=== PATIENT | female | born 1995 | race Caucasian/White ===

== ENCOUNTER 2022-10-14 08:33 | Outpatient (OUT) | payer BC, OTHER, SELFPAY ==
[2022-10-15 01:06] LABS: Progesterone 9.3 ng/mL (.)
== END 2022-10-14 08:34 ==
PROVIDERS: Visit Provider Obstetrics & Gynecology
DX: N97.0 Female infertility associated with anovulation (principal)
CPT/HCPCS: 36415; 84144

== ENCOUNTER 2022-11-15 12:22 | Outpatient (OUT) | payer SELFPAY ==
[2022-11-16 07:13] LABS: Progesterone 26.4 ng/mL (.)
== END 2022-11-15 12:23 | disposition home or self-care (01) ==
PROVIDERS: Visit Provider Obstetrics & Gynecology
DX: E34.9 Endocrine disorder, unspecified (principal)
CPT/HCPCS: 36415; 84144

== ENCOUNTER 2022-12-09 09:22 | Outpatient (OUT) | payer SELFPAY ==
--- NOTE | 2022-12-09 09:25 | US_ITS ---
[address] [address] Patient Name: ABIOLA ANDERSON MRN: [id number] date: 1995 Sex: F Assigned Patient Location: US Current Patient Location: US Accession/Order Number: [id number] Exam Date: 12/09/2022 09:26 Report Date: 12/09/2022 10:22 At the request of: LAZARUS YI Procedure: US pelvis w/ transvaginal EXAMINATION: US pelvis w/ transvaginal HISTORY: CYST OF RT OVARY COMPARISON: 09/16/2022 FINDINGS: Uterus is normal in size, contour and myometrial echotexture measuring 7.2 x 3.5 x 4.3 cm. Anteverted, anteflexed The endometrium measures 9 mm, normal. The right ovary measures 4.0 x 3.2 x 5.1 cm. Normal color and Doppler flow. Area of anechoic echogenicity measuring 1.9 x 1.7 x 2.2 cm, simple cysts. The left ovary measures 3.9 x 2.2 x 4.2 cm. Normal subcentimeter follicles. Normal color and Doppler flow No free fluid US/US pelvis w/ transvaginal IMPRESSION: 2.2 cm right ovarian simple cyst Previously identified right ovarian cystic lesion is not observed on the current exam Electronically authenticated by: LISA VELASCO Date: 12/09/2022 10:22
== END 2022-12-09 09:23 | disposition home or self-care (01) ==
LOC: US 09:22
PROVIDERS: Visit Provider Obstetrics & Gynecology
DX: N83.201 Unspecified ovarian cyst, right side (principal); E34.9 Endocrine disorder, unspecified
CPT/HCPCS: 76830; 76856

== ENCOUNTER 2022-12-16 06:28 | Outpatient (OUT) | payer SELFPAY ==
[2022-12-17 04:08] LABS: Progesterone 12.3 ng/mL (.)
== END 2022-12-16 06:29 | disposition home or self-care (01) ==
LOC: LAB 06:29
PROVIDERS: Visit Provider Obstetrics & Gynecology
DX: E34.9 Endocrine disorder, unspecified (principal)
CPT/HCPCS: 36415; 84144

== ENCOUNTER 2022-12-31 07:49 | Day surgery (SDC) | payer SELFPAY ==
--- NOTE | 2022-12-31 08:00 | FL_ITS ---
The [address] [address] Patient Name: ABIOLA ANDERSON MRN: [id number] date: 1995 Sex: F Assigned Patient Location: [place] Current Patient Location: Accession/Order Number: [id number] Exam Date: 12/31/2022 08:55 Report Date: 12/31/2022 10:40 At the request of: LAZARUS YI Procedure: FL hysterosalpingography EXAMINATION: FL hysterosalpingography HISTORY: Anovulation N97.0 , chronic infertility COMPARISON: No relevant comparison available. TECHNIQUE: Informed consent was obtained. A sterile vaginal speculum was introduced and, following cleansing of the cervix, a balloon-tipped catheter was inserted into the endometrial cavity. The procedure was then completed in the usual manner with water-soluble contrast. Standard level fluoroscopic mode of operation utilized. 1.4 minutes; 5 images FINDINGS: FALLOPIAN TUBES: No dilated fallopian tubes, most pronounced distally which retain injected contrast (no spillage into the peritoneal cavity). ENDOMETRIAL CAVITY: No scarring, filling defects, or dilatation. OTHER: Small speculum was needed for vaginal entry. Very difficult passage of catheter through the cervix (I could not get a small dilator to pass through the internal os, but was finally able to get the catheter to pass through the internal os. FL/FL hysterosalpingography IMPRESSION: 1. Retained contrast within the dilated fallopian tubes and no appreciable spillage into the peritoneal cavity consistent with obstructed distal ends of the fallopian tubes. MRI of the pelvis may be beneficial to evaluate for hydrosalpinx and possible scarring or endometriosis as cause of inadequate opening of the distal end of fallopian tubes. 2. Difficult passage of catheter through the cervix into the endometrial cavity. This may inhibit sperm migration. Electronically authenticated by: KAMALJIT MUÑOZ Date: 12/31/2022 10:40
[2022-12-31 09:03] LABS: HCG Quantitative <1 mIU/mL
[2022-12-31 10:21] VITALS: BMI 20.4
--- NOTE | 2022-12-31 10:25 | PC.NURSE ---
0935 Pt c/o nausea during middle of procedure and did have emesis of yellow bile approx 100 cc. Pt became flushed on face and was diaphoretic. Once procedure ended and vaginal speculum and hsg catheter removed pt states that she was feeling much better. Diaphoresis ended, facial flushing ended and nausea ended. Pt able to sit up and converse with Dr Savage. [id number] Pt assisted up to bathroom to change clothes. Pt denies any abd cramping after procedure and states that her vag bleeding is the same as prior to the procedure with menses.
== END 2022-12-31 09:50 ==
LOC: FL 01-01 07:46
PROVIDERS: Radiology Diagnostic Radiology; Visit Provider Obstetrics & Gynecology
DX: N97.0 Female infertility associated with anovulation (principal)
CPT/HCPCS: 36415; 74740; 84702; Q9966

== ENCOUNTER 2023-01-09 10:57 | Outpatient (OUT) | payer BC, SELFPAY ==
--- NOTE | 2023-01-09 11:48 | P.GSHP_ITS ---
History of Present Illness History of Present Illness Chief complaint: fallopian tube disorder, pelvic pain Narrative: Patient presents for preadmission testing. The patient states she is having trouble getting and does want to have her own children. She states she had a hysterosalpingogram done last week, and she has been having some abdominal cramping since then. She denies nausea, vomiting, fever, dysuria, hematuria, abnormal uterine bleeding, or any other complaints. Review of Systems ROS Narrative REVIEW OF SYSTEMS: Negative except as stated in HPI, ten or more systems reviewed. Constitutional: No fever , chills, weakness ENT: No sore throat or epistaxis Cardiovascular: No edema, chest pain, palpitations, or activity intolerance Respiratory: No shortness of breath, cough, or wheezing Musculoskeletal: No joint pain or swelling Genitourinary: No dysuria or hematuria Neurological: No numbness, tingling, weakness, or headache Psychiatric: No mood changes PFSH PFS Medical History (Updated 01/09/23 @ 11:23 by Bethanie Rivera NP) Surgical History (Updated 12/29/22 @ 15:42 by Sandhya Elmore) Family History (Updated 01/09/23 @ 11:23 by Bethanie Rivera NP) Other Family history of heart disease Family history of myocardial infarction Social History (Updated 01/09/23 @ 11:19 by Bethanie Rivera NP) Within the past year, how often did you have a drink containing alcohol: monthly or less Smoking status: Never smoker Non-prescribed substance use: denies use Previous occupational history: Accounts payable Highest level of school completed/degree received: high school graduate Meds Home Medications and Allergies Home Medications Medication Instructions Recorded Confirmed Type bupropion HCl 300 mg 24 hr tablet, 300 mg PO DAILY 12/29/22 01/09/23 History extended release escitalopram oxalate 20 mg tablet 20 mg PO DAILY 12/29/22 01/09/23 History letrozole 2.5 mg tablet (Femara) 2.5 mg PO DAILY 01/09/23 01/09/23 History metformin 500 mg tablet 500 mg PO DAILY 01/09/23 01/09/23 History Allergies Allergy/AdvReac Type Severity Reaction Status Date / Time amoxicillin Allergy rash, Verified 12/31/22 10:10 dyspnea Exam Narrative Exam Narrative: Constitutional: Awake, alert, comfortable, well-appearing, nontoxic, interactive, vital signs as charted Head: Normocephalic, atraumatic Neck: Supple, normal appearance, normal range of motion, no meningeal signs, no lymphadenopathy Respiratory: No respiratory distress, breath sounds clear Cardiovascular: Regular rate and rhythm, strong and regular heart tones Abdomen: Nontender, normal bowel sounds, soft, no CVA tenderness Musculoskeletal: Normal gait, no swelling or edema Skin: No rashes or induration, no lesions, only visible skin inspected Neuro: No neurological deficits, normal sensation Psychiatric: Oriented ?3, normal affect Assessment and Plan Assessment and Plan (1) Fallopian tube disorder: (2) Pelvic pain: (3) PCOS (polycystic ovarian syndrome): Plan Diagnostic laparoscopy, possible ANA MARIA, possible FOE, possible bilateral salpingo- oophorectomy, Chromopertubation scheduled with Dr. Urrutia 01/16/2023.
== END 2023-01-09 10:58 | disposition home or self-care (01) ==
PROVIDERS: Visit Provider Obstetrics & Gynecology
DX: Z01.818 Encounter for other preprocedural examination (principal); N83.9 Noninflammatory disorder of ovary, fallopian tube and broad ligament, unspecified; R10.2 Pelvic and perineal pain
CPT/HCPCS: G0463

== ENCOUNTER 2023-01-16 08:22 | Day surgery (SDC) | payer BC, SELFPAY ==
[2023-01-09 11:45] VITALS: BP 102/66; PULSE 65; RESP 14; TEMP 36.5; O2SAT 97; BMI 17.9
[2023-01-16] VITALS (15 sets, daily range): BP systolic 110–144; BP diastolic 66–84; PULSE 76–108; RESP 13–28; TEMP 36.3–37.6; O2SAT 94–100; BMI 20.2
[2023-01-16 08:30] LABS: Basophils Absolute Auto 0.1 10^3/uL (0.0-0.1); Basophils Percent Auto 0.8 % (0.2-2.0); Eosinophils Absolute Auto 0.3 10^3/uL (0.0-0.7); Eosinophils Percent Auto 4.9 % (0.9-7.0); Hematocrit 39.6 % (36.0-48.0); Hemoglobin 13.6 g/dL (12.0-16.0); Immature Granulocytes Abs Auto 0.02 10^3/uL (0.00-0.03); Immature Granulocytes Pct Auto 0.3 % (0.0-0.5); Lymphocytes Absolute Auto 1.8 10^3/uL (1.2-3.8); Lymphocytes Percent Auto 29.5 % (20.5-60.0); Mean Corpuscular HGB Conc 34.3 g/dL (29.9-35.2); Mean Corpuscular Hemoglobin 32.4 pg (26.7-34.0); Mean Corpuscular Volume 94.3 fL (81.0-99.0); Mean Platelet Volume 10.4 fL (9.5-13.5); Monocytes Absolute Auto 0.5 10^3/uL (0.3-0.8); Monocytes Percent Auto 7.6 % (1.7-12.0); Neutrophils Absolute Auto 3.4 10^3/uL (1.4-6.5); Neutrophils Percent Auto 56.9 % (43.0-75.0); Platelet Count 240 10^3/uL (150-450); Red Cell Distribution Width 12.1 % (11.0-15.0); White Blood Count 5.9 10^3/uL (4.0-11.0)
[2023-01-16 08:52] LABS: HCG Quantitative <1 mIU/mL
[2023-01-16] MEDS: LACTATED RINGER'S SOLUTION 1,000 ML 50 ML IV (08:52)
[2023-01-16] MEDS: SCOPOLAMINE 1 MG/3 DAYS TRANSDERM PATCH 1 PATCH TD (09:47)
[2023-01-16] MEDS: LACTATED RINGER'S SOLUTION 1,000 ML 75 ML IV (10:30)
[2023-01-16] MEDS: METHYLENE BLUE 50 MG/10 ML AMPULE INJ (10:43)
--- NOTE | 2023-01-16 11:25 | PM.ONB ---
Brief Operative Note Date of procedure: 01/16/23 Pre-op diagnosis: tubal dysfunction, pelvic pain, lt ovarian cyst Post-op diagnosis: other (posterior culdesac endometrial implants, lt ovarian cyst, bilateral hydrosalpingx, no spillage of ) Procedure: NAME OF PROCEDURE: [diagnostic laparoscopy with chromopertubation, lt ovarian cystectomy ] PROCEDURE: The patient was taken back to the Operating Room where she was placed in dorsal lithotomy position after given general anesthesia. The patient was prepped and draped in normal sterile fashion. A humi manipulator was placed into the patient's uterus. Attention was turned to the patient's abdomen, where a small umbilical incision was made. The fascia was tented using Dorothy clamps and the fascia was entered sharply. Confirmation of intraabdominal placement of the 10 mm port was confirmed under direct visualization using a laparoscope. The patient's abdomen was then insufflated using CO2 gas with approximately 4 liters. A second and third port was placed left and rt laterally, this was done under direct visualization with a 5 mm port. Survey of the patient's abdomen demonstrated normal liver and gallbladder. Survey of the patient's pelvic anatomy demonstrated normal appearing uterus except for pedunculated fibroid, blunted bilateral tubes, hydrosalpingx, lt ovarian cyst suspect endometrioma, normal appearing rt ovary. ovarian endometrial implants noted along with posterior culdesac, no evidence of any pelvic disease was seen, normal appearing pelvic cavity. All instruments were removed from the patient's abdomen. The patient's abdomen was deinsufflated of CO2 gas. The patient tolerated the procedure well. Sponge stick was removed from the patient's vagina. The patient's infraumbilical fascia was closed using #0 Vicryl on a GI needle. The patient's skin was closed laterally and infraumbilically using 4-0 Vicryl. The patient tolerated the procedure well. Sponge, lap and needle counts were correct x 2. The patient was taken to Recovery Room in stable condition.Clips from prior surgery noted adhered to bladder, the clips were grasped and gently removed please note ovarian cystectomy was performed using the ligasure, chromopertubation performed with no spillage of the dye. Anesthesia: GETA Surgeon: Francis Urrutia Vice President Of Sales: Sushma Banegas Estimated blood loss (mL): 10 Pathology: other (lt ovarian cyst wall) Condition: stable Disposition: PACU
[2023-01-16] MEDS: ONDANSETRON PF 4 MG/2 ML VIAL IV (11:58)
[2023-01-16] MEDS: HYDROMORPHONE HCL 0.5 MG/0.5 ML SYRINGE 0.4 MG IV (11:58)
[2023-01-16] MEDS: PROMETHAZINE HCL 25 MG/ML VIAL IM (13:10)
== END 2023-01-16 13:34 | disposition home or self-care (01) ==
PROVIDERS: Visit Provider Obstetrics & Gynecology
PROC: (CPT 49322; principal; 2023-01-16 09:45)
DX: N83.9 Noninflammatory disorder of ovary, fallopian tube and broad ligament, unspecified (principal); R10.2 Pelvic and perineal pain; N83.202 Unspecified ovarian cyst, left side; N70.11 Chronic salpingitis; J45.909 Unspecified asthma, uncomplicated; F32.A Depression, unspecified; F17.290 Nicotine dependence, other tobacco product, uncomplicated
CPT/HCPCS: 49322; 58350; 36415; 84702; 85025; 88305; J1170; J2704